=== PATIENT | female | born 1995 | race Two or more races ===

== ENCOUNTER 2024-10-21 20:26 | Emergency (ER) | payer OTHER, SELFPAY ==
[2024-10-21] MEDS ORDERED: Ondansetron PF 4 MG/2 ML Vial ONE (20:59)
[2024-10-21] MEDS ORDERED: Morphine 4 MG/ML VIAL ONE (20:59)
[2024-10-21 21:34] LABS: #Basophils 0.04 10x3/uL (0.0-0.2); #Eosinophils 0.18 10x3/uL (0.0-0.5); #Monocytes 0.58 10x3/uL (0.0-1.1); #Neutrophils 7.98 10x3/uL (1.5-8.4); %Basophils 0.4 % (0.0-2.0); %Eosinophils 1.7 % (0.0-6.0); %Monocytes 5.4 % (0.0-10.0); %Neutrophils 74.2 % (40.0-75.0); Hematocrit 25.5 % (34.9-44.5); Hemoglobin 6.9 g/dL (12.0-15.5); Mean Corpuscular HGB CONC 27.1 g/dL (32.0-36.0); Mean Corpuscular Hemoglobin 16.2 pg (27.0-33.0); Mean Corpuscular Volume 59.9 fL (81.6-98.3); Mean Platelet Volume 10.3 fL (7.4-10.4); RBC Distribution Width 20.7 % (11.5-14.5); Red Blood Cell (RBC) Count 4.26 10x6/uL (3.90-5.03); White Blood Cell (WBC) Count 10.74 10x3/uL (3.5-10.5)
[2024-10-21 21:38] LABS: Platelet Count 352 10x3/uL (150-450)
[2024-10-21 21:45] LABS: Reflex for Review?? YES
[2024-10-21] MEDS ORDERED: Ketorolac Tromethamine 30 MG (1 mL) VIAL ONE (21:53)
[2024-10-21 22:21] LABS: Microcytosis MODERATE=15-30 cells (100X) (0-5/hpf)
[2024-10-21 22:22] LABS: Hypochromia MODERATE=16-30 cells (100X) (0-5/hpf); Platelet Adequacy Comment Appears Adequate; Polychromasia MODERATE = 3-4 cells (100X) (0-2/hpf)
[2024-10-21 22:23] LABS: Ovalocytes SLIGHT = 2-5 cells (100X) (0-1/hpf)
== END 2024-10-21 22:35 | disposition home or self-care (01) ==
LOC: CSHERS 20:26
DX: N94.6 Dysmenorrhea, unspecified (principal)
CPT/HCPCS: 84702; 85025; 85060; 96374; 96375; J1885; J2270; J2405